=== PATIENT | female | born 1960 | race Caucasian/White ===

== ENCOUNTER → 2019-10-16 | Outpatient (CLI) | payer OTHER ==
[~2019-10-16] VITALS: Ht 160 cm; Wt 70.3 kg
[~2019-10-16] MED LIST: BUDE9TAB PO; DIPHENHYDRAMINE 50 MG/ML, 1ML IVPush PRN; EPINEPHRINE 1 MG/ML, 1ML IV PRN; FLUT1BLS INH; GABA-826 PO; GOLI100D SQ; HYDR-3245 PO; INFLIXIMAB IV ONE; MERC50TA17 PO; SODIUM CHLORIDE 0.9% IV ONE; SUMA100T4 PO; TRAM50TA2 PO
[2019-10-16 08:40] VITALS: BP 147/84
== END | disposition home or self-care (01) ==
LOC: INFUSION 08:25
PROVIDERS: ATTEND Internal Medicine Gastroenterology
DX: K51.90 Ulcerative colitis, unspecified, without complications (principal); J45.909 Unspecified asthma, uncomplicated; R53.83 Other fatigue; G43.909 Migraine, unspecified, not intractable, without status migrainosus; Z87.891 Personal history of nicotine dependence
CPT/HCPCS: 96365; 96366; J1745; J7050

== ENCOUNTER 2019-10-30 06:23 | Outpatient (CLI) | payer OTHER ==
[~2019-10-30] VITALS: Ht 160 cm; Wt 71.3 kg
[~2019-10-30 06:23] MED LIST changes: -DIPHENHYDRAMINE 50 MG/ML, 1ML IVPush PRN; -EPINEPHRINE 1 MG/ML, 1ML IV PRN; -INFLIXIMAB IV ONE; -SODIUM CHLORIDE 0.9% IV ONE
[2019-10-30 09:45] VITALS: BP 137/82
[2019-10-30] MEDS ORDERED: DIPHENHYDRAMINE 50 MG/ML, 1ML IVPush PRN (10:30)
[2019-10-30] MEDS ORDERED: INFLIXIMAB IV ONE (10:30)
[2019-10-30] MEDS ORDERED: SODIUM CHLORIDE 0.9% IV ONE (10:30)
[2019-10-30] MEDS ORDERED: EPINEPHRINE 1 MG/ML, 1ML IV PRN (10:30)
== END 2019-10-30 23:59 | disposition home or self-care (01) ==
LOC: INFUSION 06:23
PROVIDERS: ATTEND Internal Medicine Gastroenterology
DX: K51.90 Ulcerative colitis, unspecified, without complications (principal); J45.909 Unspecified asthma, uncomplicated; G43.909 Migraine, unspecified, not intractable, without status migrainosus; Z87.891 Personal history of nicotine dependence
CPT/HCPCS: 96365; 96366; J1745; J7050

== ENCOUNTER → 2019-12-05 | Outpatient (CLI) | payer OTHER ==
[~2019-12-05] VITALS: Ht 160 cm; Wt 68.3 kg
[~2019-12-05] MED LIST changes: +INFLIXIMAB IV ONE; +SODIUM CHLORIDE 0.9% IV ONE
[2019-12-05 07:00] VITALS: BP 135/84
== END | disposition home or self-care (01) ==
LOC: INFUSION 06:52
PROVIDERS: ATTEND Internal Medicine Gastroenterology
DX: K51.90 Ulcerative colitis, unspecified, without complications (principal); G43.909 Migraine, unspecified, not intractable, without status migrainosus; J45.909 Unspecified asthma, uncomplicated; Z87.891 Personal history of nicotine dependence
CPT/HCPCS: 96365; 96366; J1745; J7050

== ENCOUNTER → 2020-01-29 | Outpatient (CLI) | payer OTHER ==
[~2020-01-29] VITALS: Ht 160 cm; Wt 67.6 kg
[~2020-01-29] MED LIST changes: +FILTER 1.2 MICRON IV SCH
[2020-01-29 08:25] VITALS: BP 166/82
== END | disposition home or self-care (01) ==
LOC: INFUSION 08:15
PROVIDERS: ATTEND Internal Medicine Gastroenterology
DX: K51.90 Ulcerative colitis, unspecified, without complications (principal); J45.909 Unspecified asthma, uncomplicated; G43.909 Migraine, unspecified, not intractable, without status migrainosus; Z87.891 Personal history of nicotine dependence
CPT/HCPCS: 96365; 96366; J1745; J7050

== ENCOUNTER → 2020-05-21 | Outpatient (CLI) | payer OTHER ==
[~2020-05-21] MED LIST changes: +BACI1CAP PO; +CALC1TAB2 PO; +CYAN1TAB29 PO; +CYCL5TAB PO; -FILTER 1.2 MICRON IV SCH; +FLUT1AER INH; +GABA300C PO; +INFL100V IV; -INFLIXIMAB IV ONE; +MODA200T2 PO; +MULT-658 PO; +ONDA4TAB13 SL; -SODIUM CHLORIDE 0.9% IV ONE
[2020-05-21 11:34] LABS: BASOPHILS # (AUTO) 0.01 x10^3/uL (0-0.1); BASOPHILS % (AUTO) 0 % (0-1); EOSINOPHILS # (AUTO) 0.15 x10^3/uL (0-0.4); EOSINOPHILS % (AUTO) 3 % (1-7); LYMPHOCYTES # (AUTO) 1.62 x10^3/uL (1-3.4); LYMPHOCYTES % (AUTO) 28 % (22-44); MD NO; MEAN CORPUSCULAR HGB CONC 34.9 g/dL (32.4-35.8); MEAN CORPUSCULAR VOLUME 97.2 fL (80-100); MEAN PLATELET VOLUME 7.8 fL (7.4-10.4); MONOCYTES # (AUTO) 0.36 x10^3/uL (0.2-0.8); MONOCYTES % (AUTO) 6 % (2-9); NEUTROPHILS # (AUTO) 3.64 x10^3/uL (1.8-6.8); NEUTROPHILS % (AUTO) 63 % (42-75); PLATELET COUNT 201 x10^3/uL (130-400); RED BLOOD COUNT 3.87 x10^6/uL (3.82-5.3); RED CELL DISTRIBUTION WIDTH 13.6 % (9.6-15.2)
[2020-05-21 11:44] LABS: ANION GAP 5 mmol/L (5-15); CALCIUM 9.8 mg/dL (8.5-10.1); CHLORIDE 103 mmol/L (98-107); CREATININE 0.78 mg/dL (0.55-1.02)
== END | disposition home or self-care (01) ==
LOC: STAR 10:12
PROVIDERS: ATTEND Orthopaedic Surgery
DX: Z01.818 Encounter for other preprocedural examination (principal); M25.561 Pain in right knee; M17.11 Unilateral primary osteoarthritis, right knee
CPT/HCPCS: 36415; 80048; 85025; 87081; 93005

== ENCOUNTER 2020-06-05 10:31 | Observation (INO) | payer OTHER ==
[~2020-06-05] VITALS: Ht 160 cm; Wt 72.0 kg
[2020-06-05 11:12] VITALS: BP 128/84
[2020-06-05] MEDS ORDERED: CHLORHEXIDINE 15 ML UDC MM ONE (11:30)
[2020-06-05] MEDS ORDERED: LACTATED RINGERS 1,000 ML IV SCH (12:00)
[2020-06-05] MEDS ORDERED: FAMOTIDINE 20 MG TABLET PO ONE (12:30)
[2020-06-05] MEDS ORDERED: ACETAMINOPHEN 500 MG TABLET PO ONE (12:30)
[2020-06-05] MEDS ORDERED: OXYcodone 5 MG/5 ML ORAL.SOL UDC PO PRN (12:30)
[2020-06-05] MEDS ORDERED: BUPIVACAINE LIPOSOME/PF 10ML INFIL ONE ×3 (12:30→13:00)
[2020-06-05] MEDS ORDERED: SCOPOLAMINE 1MG PATCH TD SCH (12:30)
[2020-06-05] MEDS ORDERED: PROMETHAZINE 25 MG/ML, 1ML IVPush PRN (12:30)
[2020-06-05] MEDS ORDERED: OXYcodone IR 5MG TABLET PO ONE (12:30)
[2020-06-05] MEDS ORDERED: MIDAZOLAM 1 MG/ML, 2ML ONE (13:03)
[2020-06-05] MEDS ORDERED: SUCCINYLCHOLINE 20 MG/ML, 10ML ONE (13:03)
[2020-06-05] MEDS ORDERED: PROPOFOL 10 MG/ML, 20ML ONE (13:03)
[2020-06-05] MEDS ORDERED: CEFAZOLIN 1,000 MG ONE (13:03)
[2020-06-05] MEDS ORDERED: ONDANSETRON 2MG/ML, 2ML ONE (13:03)
[2020-06-05] MEDS ORDERED: GLYCOPYRROLATE 0.2MG/1ML, 5ML ONE (13:03)
[2020-06-05] MEDS ORDERED: DIAZEPAM 5 MG TABLET PO PRN (15:00)
[2020-06-05] MEDS ORDERED: DIPHENHYDRAMINE 25 MG CAPSULE PO PRN (15:00)
[2020-06-05] MEDS ORDERED: SUMATRIPTAN 25 MG TABLET PO PRN (15:00)
[2020-06-05] MEDS ORDERED: PSYLLIUM PACKET PO PRN (15:00)
[2020-06-05] MEDS ORDERED: PROMETHAZINE 12.5 MG SUPP PR PRN (15:00)
[2020-06-05] MEDS ORDERED: HYDROmorphone 1 MG/ML, 1ML INJ IVPush PRN (15:00)
[2020-06-05] MEDS ORDERED: KETOROLAC 30 MG/1 ML IV SCH (15:00)
[2020-06-05] MEDS ORDERED: OXYcodone/APAP 5/325MG TABLET PO PRN (15:00)
[2020-06-05] MEDS ORDERED: ONDANSETRON 2MG/ML, 2ML IVPush PRN (15:00)
[2020-06-05] MEDS ORDERED: DEXAMETHASONE 4 MG/ML, 1ML IVPush SCH (15:00)
[2020-06-05] MEDS ORDERED: HYDROcodone/APAP 5/325 TABLET PO PRN (15:00)
[2020-06-05] MEDS ORDERED: FENTANYL PF 100 MCG/2ML ONE (15:01)
[2020-06-05] MEDS ORDERED: OXYcodone 5 MG/5 ML ORAL.SOL UDC ONE (15:01)
[2020-06-05] MEDS: FENTANYL PF 100 MCG/2ML IV PRN ×2 (15:04→15:10)
[2020-06-05] MEDS ORDERED: LORazepam 2 MG/ML, 1ML ONE (15:09)
[2020-06-05] MEDS ORDERED: HYDROmorphone 1 MG/ML, 1ML INJ ONE (15:22)
[2020-06-05] MEDS: HYDROmorphone 1 MG/ML, 1ML INJ IVPush PRN ×2 (15:25→15:41)
[2020-06-05] MEDS ORDERED: LORazepam 2 MG/ML, 1ML IVPush PRN (16:00)
[2020-06-05] MEDS ORDERED: TRANEXAMIC ACID 1,000 MG in SODIUM CHLORIDE 0.9% 100 ML IVPB ONE (16:00)
[2020-06-05] MEDS: DOCUSATE 100 MG CAPSULE PO SCH (20:36)
[2020-06-05] MEDS: CEFAZOLIN PMX 1GM/50ML 50 ML IVPB SCH (20:36)
[2020-06-05] MEDS: OXYcodone/APAP 10/325MG TABLET PO PRN (20:37)
[2020-06-05 20:57] VITALS: BP 116/73
[2020-06-05] MEDS ORDERED: GABAPENTIN 300 MG CAPSULE PO SCH (21:00)
[2020-06-05] MEDS ORDERED: MERCAPTOPURINE 50 MG TABLET PO SCH (21:00)
[2020-06-06 00:58] VITALS: BP 113/68
[2020-06-06] MEDS: CEFAZOLIN PMX 1GM/50ML 50 ML IVPB SCH (03:28)
[2020-06-06] MEDS: OXYcodone/APAP 10/325MG TABLET PO PRN ×2 (03:29→08:10)
[2020-06-06 04:05] VITALS: BP 102/63
[2020-06-06] MEDS ORDERED: ASPIRIN 81 MG TABLET EC PO SCH ×2 (06:00→18:00)
[2020-06-06] MEDS ORDERED: DEXAMETHASONE 4 MG/ML, 1ML IVPush SCH (06:00)
[2020-06-06] MEDS: KETOROLAC 30 MG/1 ML IV SCH ×3 (08:09→08:10)
[2020-06-06] MEDS: DOCUSATE 100 MG CAPSULE PO SCH (08:10)
[2020-06-06 08:39] VITALS: BP 105/69
[2020-06-06] MEDS ORDERED: MULTIVITAMIN 1 TABLET PO SCH (09:00)
[2020-06-06] MEDS ORDERED: CALCIUM/VITAMIN D3 250-125 TABLET PO SCH (09:00)
[2020-06-06] MEDS ORDERED: MODAFINIL 100 MG TABLET PO SCH (09:00)
[2020-06-06] MEDS ORDERED: MERCAPTOPURINE 50 MG TABLET PO SCH (09:00)
[2020-06-06 10:43] VITALS: BP 122/67
== END 2020-06-06 11:29 | disposition home or self-care (01) ==
LOC: OUT 10:31 → ORIP 14:48 → 4NE 18:05 → DCLOUNGE 06-06 11:12
PROVIDERS: ADMIT Orthopaedic Surgery; ATTEND Orthopaedic Surgery
DX: Z03.818 Encounter for observation for suspected exposure to other biological agents ruled out (principal); M17.11 Unilateral primary osteoarthritis, right knee; J45.909 Unspecified asthma, uncomplicated; D64.9 Anemia, unspecified; Z87.891 Personal history of nicotine dependence; Z87.19 Personal history of other diseases of the digestive system; Z88.0 Allergy status to penicillin; Z79.899 Other long term (current) drug therapy; Z86.12 Personal history of poliomyelitis; Z96.651 Presence of right artificial knee joint
CPT/HCPCS: 27447; 36415; 73560; 87635; 96365; 96366; 97161; C1713; C1776; G0378; J0330; J0690; J1170; J2060; J2250; J2405; J2704; J3010; J7120; J1885